=== PATIENT | female | born 1970 | race Caucasian/White ===

== ENCOUNTER 2023-07-27 10:04 | Emergency (ER) | payer MEDICAID ==
[~2023-07-27] VITALS: Ht 165.1 cm; Wt 81.6 kg
[2023-07-27] MEDS ORDERED: METF-379 PO (10:11)
[2023-07-27] MEDS ORDERED: TELM40TA7 PO (10:11)
[2023-07-27] MEDS ORDERED: LEVO50CA4 PO (10:11)
[2023-07-27 10:13] VITALS: BP_SYST 162; PULSE 102; RESP 18; TEMP 97.8; O2SAT 99
[2023-07-27] MEDS ORDERED: KETOROLAC TROMETHAMINE 60 MG/2 ML VIAL IM ONE (11:00)
[2023-07-27] MEDS ORDERED: methylPREDNISolone SOD SUCC/PF 62.5 MG/ML VIAL IM ONE (11:00)
[2023-07-27] MEDS ORDERED: IBUP-1971 PO (11:09)
[2023-07-27] MEDS ORDERED: PRED20TA PO (11:09)
[2023-07-27] MEDS ORDERED: OXYC-128 PO (11:10)
[2023-07-27 11:34] VITALS: BP_SYST 159; PULSE 88; RESP 18; TEMP 98.5; O2SAT 97
[2023-07-28] MEDS ORDERED: HYDR-3927 PO (07:44)
== END 2023-07-27 11:32 | disposition home or self-care (01) ==
LOC: SED 10:04
DX: M54.30 Sciatica, unspecified side (principal); M54.50 Low back pain, unspecified; M79.652 Pain in left thigh; Z88.6 Allergy status to analgesic agent; Z79.899 Other long term (current) drug therapy
CPT/HCPCS: 99284; 96372; J1885; J2930